=== PATIENT | male | born 1995 | race Caucasian/White ===

== ENCOUNTER 2019-04-03 19:27 | Emergency (ER) | payer OTHER ==
[~2019-04-03] VITALS: Ht 172.7 cm; Wt 49.4 kg
[2019-04-03 19:30] VITALS: Ht 172.7 cm; Wt 49.4 kg
[2019-04-03 20:12] LABS: microscopic required? YES; urine erythrocyte TRACE (NEGATIVE)
[2019-04-03 20:14] LABS: BASOPHIL % 0.5 % (0-2); PLATELET COUNT 273 x10^3mcL (130-400); RED CELL DISTRIBUTION WIDTH 13.1 % (11.5-14.5)
[2019-04-03 20:26] LABS: CALCIUM 11.5 mg/dL (8.5-10.1); CARBON DIOXIDE 27.1 mmol/L (21-32); CREATININE SERUM 3.2 mg/dL (0.7-1.3); POTASSIUM SERUM 4.8 mmol/L (3.5-5.1)
[2019-04-03 20:29] LABS: AMPHETAMINE QUAL UR POSITIVE (See below)
[2019-04-03 20:32] LABS: ALBUMIN 4.1 g/dL (3.4-5.0); BILIRUBIN TOTAL 0.3 mg/dL (0.20-1.00)
[2019-04-03 20:33] LABS: TOTAL PROTEIN, SERUM 8.4 g/dL (6.4-8.2)
[2019-04-03 21:38] VITALS: BP 134/89
== END 2019-04-03 21:38 | disposition home or self-care (01) ==
LOC: ED 19:27
PROVIDERS: Specialist
DX: R10.31 Right lower quadrant pain (principal); R50.9 Fever, unspecified; K59.00 Constipation, unspecified; R63.0 Anorexia; F17.210 Nicotine dependence, cigarettes, uncomplicated; Z71.6 Tobacco abuse counseling; Z88.0 Allergy status to penicillin
CPT/HCPCS: 36415; 87491; 87591; 99406; J1885

== ENCOUNTER 2019-08-11 19:58 | Emergency (ER) | payer OTHER ==
[~2019-08-11] VITALS: Ht 172.7 cm; Wt 61.2 kg
[2019-08-11 21:11] VITALS: Ht 172.7 cm; Wt 61.2 kg
[2019-08-11 23:29] LABS: UA SPECIFIC GRAVITY 1.015 (1.005-1.035); microscopic required? YES; urine erythrocyte 3+ (NEGATIVE)
[2019-08-12 00:15] VITALS: BP 163/113
== END 2019-08-12 00:15 | disposition home or self-care (01) ==
LOC: ED 19:58
PROVIDERS: Emergency Medicine
DX: N39.0 Urinary tract infection, site not specified (principal); Z88.0 Allergy status to penicillin

== ENCOUNTER 2019-08-13 07:16 | Inpatient (IN) | payer OTHER ==
[~2019-08-13] VITALS: Ht 172.7 cm; Wt 60.6 kg
[2019-08-13 07:34] VITALS: Ht 172.7 cm; Wt 60.6 kg
[2019-08-13 08:06] LABS: BASOPHIL % 0.8 % (0-2); PLATELET COUNT 266 x10^3mcL (130-400); RED CELL DISTRIBUTION WIDTH 13.5 % (11.5-14.5)
[2019-08-13 08:10] LABS: microscopic required? YES; urine erythrocyte TRACE (NEGATIVE)
[2019-08-13 08:26] LABS: CALCIUM 11.5 mg/dL (8.5-10.1); CARBON DIOXIDE 26.1 mmol/L (21-32); POTASSIUM SERUM 3.4 mmol/L (3.5-5.1)
[2019-08-13 08:38] LABS: ALBUMIN 4.2 g/dL (3.4-5.0); BILIRUBIN TOTAL 0.39 mg/dL (0.20-1.00); T4(THYROXINE) 8.2 ug/dL (4.7-13.3)
[2019-08-13 08:39] LABS: TOTAL PROTEIN, SERUM 8.3 g/dL (6.4-8.2)
[2019-08-13 09:17] LABS: AMPHETAMINE QUAL UR POSITIVE (See below)
[2019-08-13 14:16] VITALS: BP 150/93
[2019-08-13 17:12] VITALS: BP 143/94
[2019-08-13 20:57] VITALS: BP 145/97
[2019-08-14 05:08] LABS: RAPID PLASMA REAGIN Non Reactive (Non Reactive)
[2019-08-14 05:23] VITALS: BP 139/85
[2019-08-14 06:51] LABS: BASOPHIL % 0.5 % (0-2); PLATELET COUNT 238 x10^3mcL (130-400); RED CELL DISTRIBUTION WIDTH 13.2 % (11.5-14.5)
[2019-08-14 07:30] LABS: CALCIUM 10.9 mg/dL (8.5-10.1); CARBON DIOXIDE 24.3 mmol/L (21-32); CREATININE SERUM 1.9 mg/dL (0.7-1.3); POTASSIUM SERUM 3.7 mmol/L (3.5-5.1)
[2019-08-14 08:43] VITALS: BP 139/89
[2019-08-14 12:27] VITALS: BP 146/94
[2019-08-14 17:10] VITALS: BP 132/90
[2019-08-14 20:30] VITALS: BP 143/97
[2019-08-15 05:55] VITALS: BP 136/88
[2019-08-15 06:18] LABS: BASOPHIL % 0.5 % (0-2); PLATELET COUNT 231 x10^3mcL (130-400); RED CELL DISTRIBUTION WIDTH 13.2 % (11.5-14.5)
[2019-08-15 06:29] LABS: CALCIUM 10.2 mg/dL (8.5-10.1); CARBON DIOXIDE 26.1 mmol/L (21-32); POTASSIUM SERUM 3.8 mmol/L (3.5-5.1)
[2019-08-15 09:14] VITALS: BP 139/91
[2019-08-15 12:26] VITALS: BP 143/89
[2019-08-15 20:24] VITALS: BP 150/92
[2019-08-16 05:10] VITALS: BP 142/92
[2019-08-16 07:07] LABS: BASOPHIL % 0.7 % (0-2); PLATELET COUNT 220 x10^3mcL (130-400)
[2019-08-16 07:37] LABS: CALCIUM 10.9 mg/dL (8.5-10.1); CARBON DIOXIDE 23.8 mmol/L (21-32); CREATININE SERUM 1.8 mg/dL (0.7-1.3); POTASSIUM SERUM 3.8 mmol/L (3.5-5.1)
[2019-08-16 08:46] VITALS: BP 152/96
[2019-08-16] MEDS ORDERED: CIPRO500 MG PO (10:24)
[2019-08-16 10:27] VITALS: BP 130/76
== END 2019-08-16 12:55 | disposition home or self-care (01) | DRG 463 ==
LOC: ED 07:16 → MU 10:11
PROVIDERS: Emergency Medicine; ADMIT Family Medicine
DX: N13.6 Pyonephrosis (principal); N17.9 Acute kidney failure, unspecified; E83.52 Hypercalcemia; F17.210 Nicotine dependence, cigarettes, uncomplicated; F12.20 Cannabis dependence, uncomplicated; Y90.9 Presence of alcohol in blood, level not specified; F10.20 Alcohol dependence, uncomplicated; Z88.0 Allergy status to penicillin; Z71.51 Drug abuse counseling and surveillance of drug abuser
CPT/HCPCS: 76770; 87491; 87591; 90658; 99406; C9113; G0378; J0744; J1956; J7030; Q0092